=== PATIENT | female | born 1990 | race Hispanic/Latino ===

== ENCOUNTER 2024-01-28 06:43 | Day surgery (SDC) | payer BC ==
[2024-01-25 13:14] VITALS: BP 122/78; PULSE 70; RESP 18
[2024-01-28] VITALS (14 sets, daily range): BP systolic 88–157; BP diastolic 50–97; PULSE 62–88; RESP 9–18
[~2024-01-28] VITALS: Ht 170.2 cm; Wt 71.8 kg
[~2024-01-28 06:43] MED LIST: DAY QUIL PO; [UNRECOGNIZED DRUG - CODE] PO
[2024-01-28] MEDS: LACTATED RINGERS 1000ML 1,000 ML IV ONE (07:46)
[2024-01-28] MEDS ORDERED: LIDOCAINE PF 100MG/5ML (2%) SYRINGE 5ML ONE (08:07)
[2024-01-28] MEDS ORDERED: FENTANYL CITRATE PF 50 MCG/1 ML 2ML VIAL ONE ×2 (08:08→08:29)
[2024-01-28] MEDS ORDERED: PROPOFOL 10 MG/ML 20ML VIAL IV ONE ×3 (08:08→08:26)
[2024-01-28] MEDS: CEFAZOLIN SODIUM 2 GM VIAL ONE (08:18)
[2024-01-28] MEDS ORDERED: DEXAMETHASONE SOD PHOSPHATE 4 MG/ML 1ML VIAL ONE (08:20)
[2024-01-28] MEDS ORDERED: ONDANSETRON 4MG INJ ONE (08:21)
[2024-01-28] MEDS: BUPIVACAINE/PF 0.25% 30ML VIAL IJ ONE (08:43)
[2024-01-28] MEDS ORDERED: NALOXONE HCL 0.4 MG/1 ML ML ONE (08:58)
== END 2024-01-28 10:25 | disposition home or self-care (01) ==
LOC: DAH 06:43
PROVIDERS: ATTEND Surgery
DX: L72.3 Sebaceous cyst (principal); L72.12 Trichodermal cyst; I10 Essential (primary) hypertension; F41.9 Anxiety disorder, unspecified
CPT/HCPCS: 81025; 11422; 88304; J1100; A4663 ×2; J7030; A4452; A4649; J7120; J3010 ×2; J2310; J0665; J2001; J2704 ×3; J2405; J0690; A4930; A4215; A4223; A4213; A4222; A4221; A4600; J3490